=== PATIENT | male | born 1985 | race Caucasian/White ===

== ENCOUNTER 2021-09-19 10:18 | Day surgery (SDC) | payer MEDICARE, SELFPAY ==
[2021-09-19] VITALS (10 sets, daily range): BP systolic 127–144; BP diastolic 62–97; PULSE 64–89; RESP 14–18; TEMP 36.5–36.8; O2SAT 97–100; BMI 25.6
--- NOTE | ~2021-09-19 | CT_ITS ---
EXAMINATION: CT abdomen pelvis w con EXAM DATE: 09/19/2021 11:56 INDICATION: RLQ pain TECHNIQUE: Spiral CT of the abdomen and pelvis was performed following intravenous injection of 100 m L Omnipaque 350. Axial, coronal and sagittal images of the abdomen and pelvis were reviewed. The do se-length product (DLP) for this examination was 780.71 mGy-cm. The exposure was tailored according to patient size (auto mA exposure control), and iterative reconstruction (ASIR) was used as additiona l dose reduction technique. There is no prior study for comparison. FINDINGS: Appendix identified, mildly dilated and with mild adjacent inflammation, acute uncomplicate d appendicitis. The liver, spleen, adrenal glands and pancreas are unremarkable. Gallbladder is unr emarkable. No biliary obstruction. Portal and splenic veins are patent. Kidneys enhance symmetrica lly. There is no hydronephrosis. The prostate is unremarkable. The bladder is unremarkable. Ther e is no retroperitoneal or pelvic lymphadenopathy. Small umbilical fat-containing hernia. The stomach and small bowel are unremarkable. There is expected amount of colonic stool. No free i ntraperitoneal gas. The heart is normal in size. There are no pericardial or pleural effusions. T he lung bases are unremarkable. There are no osteoblastic or osteolytic lesions identified. IMPRESSION: Acute uncomplicated appendicitis. Reviewed, dictated and finalized at location A. [facility]
[2021-09-19] MEDS: SODIUM CHLORIDE 0.9% IV 1,000 ML 999 ML IV CONT (11:14)
[2021-09-19 11:25] LABS: Basophils Percent Auto 0.1 % (0.2-1.2); Eosinophils Absolute Auto 0.1 K/mm3 (0-0.3); Eosinophils Percent Auto 0.6 % (0-4.4); Hematocrit 45.6 % (42.0-52.0); Immature Granulocyte Absolute 0.06 K/mm3 (0.00-0.031); Immature Granulocyte Percent A 0.6 % (0-0.5); Lymphocytes Absolute Auto 2.17 K/mm3 (0.9-3.2); Lymphocytes Percent Auto 21.2 % (18.3-44.2); Mean Corpuscular HGB Conc 35.1 g/dl (32-36); Mean Corpuscular Hemoglobin 30.6 pg (26-34); Mean Corpuscular Volume 87.2 fl (80-100); Mean Platelet Volume 10.4 fl (7.4-10.4); Monocytes Absolute Auto 0.8 K/mm3 (0.1-0.6); Neutrophils Absolute Auto 7.1 K/mm3 (1.3-6.7); Neutrophils Percent Auto 69.5 % (45.5-73.1); Platelet Count Result 210 k/mm3 (150-375); Red Blood Count 5.23 M/mm3 (4.6-6.20); Red Cell Distribution Width 12.3 % (11.5-14.5); White Blood Count 10.2 K/mm3 (4.5-10.0)
[2021-09-19 11:29] LABS: Add Urine Microscopic? NO; Appearance Urine Clear (Clear); Bilirubin Urine Negative (Negative); Blood Urine Negative (Negative); Color Urine Colorless (Yellow); Glucose Urine UA Negative (Negative); Ketones Urine Negative (Negative); Leukocyte Esterase Ur Negative LEU/UL (Negative); Nitrate Urine Negative (Negative); Protein Urine Negative (Negative); Urobilinogen Urine Negative mg/dL (<2.0)
[2021-09-19 11:31] LABS: Specific Grav Ur 1.003 (1.001-1.035)
[2021-09-19 11:41] LABS: Alanine Aminotransferase 61 U/L (4-50); Albumin Level 4.9 g/dL (3.5-5.1); Alkaline Phosphatase 109 U/L (38-126); Anion Gap 11 mmol/L (8-16); Aspartate Amino Transferase 34 U/L (17-59); Bilirubin,Total 1.1 mg/dL (0.2-1.3); Blood Urea Nitrogen 11 mg/dL (9-20); Calcium 9.7 mg/dL (8.4-10.2); Carbon Dioxide 27 mmol/L (22-30); Chloride 102 mmol/L (98-107); Estimated CRCL calculation 80 ml/min; Estimated Glomerular Filt Rate > 60; Glucose 103 mg/dL (65-110); Lipase 74 U/L (23-300); Potassium 3.8 mmol/L (3.4-5.0); Sodium 140 mmol/L (137-145)
--- NOTE | 2021-09-19 11:43 | ED.GENADULT ---
HPI - General Adult General Chief complaint: Abdominal Pain Stated complaint: belly pain Time Seen by Provider: 09/19/21 10:46 Source: patient and RN notes reviewed Mode of arrival: ambulatory Limitations: no limitations History of Present Illness HPI narrative: Patient is a 36-year-old male who presents with right lower quadrant pain that began yesterday at roughly 5:00 in the evening after eating dinner he notes moderate ache pain to the right lower quadrant worse with activity movement palpation he notes associated nausea he denies similar occurrence in the past. Patient presents nondistressed does not take anything for his symptoms he notes he had a normal bowel movement this morning denies any urinary symptoms or any diarrhea melena or rectal bleeding pain radiates across the lower abdomen Related Data Allergies Allergy/AdvReac Type Severity Reaction Status Date / Time No Known Allergies Allergy Verified 09/19/21 11:15 Review of Systems Review of Systems: All systems reviewed & are unremarkable except as noted in HPI and below PMFSH Past Medical History Medical History (Updated 09/19/21 @ 12:47 by Armen Steele PA-C) Seizure Traumatic brain injury Social History Social History Smoking status: Never smoker Exam Narrative: GENERAL: Well-appearing, well-nourished, and in no acute distress. HEAD: Normocephalic, atraumatic. EYES: PERRLA and EOMI. ENT: Nares clear, no rhinorrhea or epistaxis. Mucous membranes moist. CHEST: Clear to auscultation. No respiratory distress. No wheezes rales or rhonchi HEART: Regular rate and rhythm. No murmur heard. Normal peripheral pulses. ABDOMEN: Soft, voluntary guarding and tenderness of the lower quadrants worse in the right lower quadrant per patient, nondistended EXTREMITIES: Normal range of motion. No edema. SKIN: Warm, dry, no rash. NEURO: No focal deficits. Alert and oriented x3. PSYCH: Normal mood and affect. Course Course Emergency Course: Patient aware of case findings treatment plan and diagnosis patient hydrated in the emergency department given medication for his pain he is resting comfortably he is aware of his diagnosis of acute appendicitis and will go to the OR Consultations Consultation #1: Discussed case with Dr. Finnegan surgeon who will take the patient to the OR would also like Zosyn to be administered Date: 09/19/21 Time: 13:00 Vital Signs Vital signs: Vital Signs Temperature 97.7 F 09/19/21 10:34 Pulse Rate 89 09/19/21 10:34 Respiratory Rate 18 09/19/21 10:34 Blood Pressure 137/97 H 09/19/21 10:34 Pulse Oximetry 100 09/19/21 10:34 Temperature 97.7 F 09/19/21 10:34 Pulse Rate 85 09/19/21 12:13 Respiratory Rate 16 09/19/21 12:13 Blood Pressure 129/84 09/19/21 12:13 Pulse Oximetry 98 09/19/21 12:13 Medical Decision Making MDM Narrative Medical decision making narrative: Patient presents with right lower quadrant pain diagnosed acute appendicitis uncomplicated we will go to the OR discussion was made with the surgeon Dr. Retana who would like the patient also be given Zosyn Vital Signs Vital Signs: Vital Signs Temperature 97.7 F 09/19/21 10:34 Pulse Rate 89 09/19/21 10:34 Respiratory Rate 18 09/19/21 10:34 Blood Pressure 137/97 H 09/19/21 10:34 Pulse Oximetry 100 09/19/21 10:34 Temperature 97.7 F 09/19/21 10:34 Pulse Rate 85 09/19/21 12:13 Respiratory Rate 16 09/19/21 12:13 Blood Pressure 129/84 09/19/21 12:13 Pulse Oximetry 98 09/19/21 12:13 Lab Data Result diagrams: 09/19/21 11:12 09/19/21 11:12 Labs: Lab Results 09/19/21 09/19/21 09/19/21 Range/Units 11:12 11:12 11:12 WBC 10.2 H (4.5-10.0) K/mm3 RBC 5.23 (4.6-6.20) M/mm3 Hgb 16.0 (14.0-18.0) g/dL Hct 45.6 (42.0-52.0) % MCV 87.2 (80-100) fl MCH 30.6 (26-34) pg MCHC 35.1 (32-36) g/dl RDW
--- NOTE | 2021-09-19 12:56 | WPDANESEPPF ---
Anes - Initial Pre Proc Eval Procedure: Operation Date: 09/19/21 14:00 Proposed Procedures p Laparoscopic Appendectomy - Roxi Finnegan MD Date/Time: 09/19/21 12:56 Pre Op Diagnosis: my leg hurmati Patient Data Age: 36 Gender: M Height: 1.78 m Weight: 81 kg Last Vital Signs Temp 36.5 C 09/19/21 10:34 Pulse 85 09/19/21 12:13 Resp 16 09/19/21 12:13 BP 129/84 09/19/21 12:13 Pulse Ox 98 09/19/21 12:13 Allergies Allergy/AdvReac Type Severity Reaction Status Date / Time No Known Allergies Allergy Verified 09/19/21 11:15 Laboratory Tests 09/19/21 09/19/21 09/19/21 11:12 11:12 11:12 WBC 10.2 K/mm3 H K/mm3 (4.5-10.0) RBC 5.23 M/mm3 M/mm3 (4.6-6.20) Hgb 16.0 g/dL g/dL (14.0-18.0) Hct 45.6 % % (42.0-52.0) MCV 87.2 fl fl (80-100) MCH 30.6 pg pg (26-34) MCHC 35.1 g/dl g/dl (32-36) RDW 12.3 % % (11.5-14.5) Plt Count 210 k/mm3 k/mm3 (150-375) MPV 10.4 fl fl (7.4-10.4) Immature Gran % (Auto) 0.6 % H % (0-0.5) Neut % (Auto) 69.5 % % (45.5-73.1) Lymph % (Auto) 21.2 % % (18.3-44.2) Union % (Auto) 8.0 % % (2.6-8.5) Eos % (Auto) 0.6 % % (0-4.4) Baso % (Auto) 0.1 % L % (0.2-1.2) Lymph # (Auto) 2.17 K/mm3 K/mm3 (0.9-3.2) Union # (Auto) 0.8 K/mm3 H K/mm3 (0.1-0.6) Eos # (Auto) 0.1 K/mm3 K/mm3 (0-0.3) Baso # (Auto) 0.0 K/mm3 K/mm3 (0.0-0.1) Abs Immat Gran (auto) 0.06 K/mm3 H K/mm3 (0.00-0.031) Absolute Neuts (auto) 7.1 K/mm3 H K/mm3 (1.3-6.7) Absolute Nucleated RBC 0.0 K/mm3 K/mm3 (0.0-0.012) Nucleated RBC % 0.0 % % (0.0-0.2) Sodium 140 mmol/L mmol/L (137-145) Potassium 3.8 mmol/L mmol/L (3.4-5.0) Chloride 102 mmol/L mmol/L (98-107) Carbon Dioxide 27 mmol/L mmol/L (22-30) Anion Gap 11 mmol/L mmol/L (8-16) BUN 11 mg/dL mg/dL (9-20) Creatinine 1.20 mg/dL mg/dL (0.7-1.3) Estim Creat Clear Calc 80 ml/min ml/min Estimated GFR > 60 (59 - ) Glucose 103 mg/dL mg/dL (65-110) Calcium 9.7 mg/dL mg/dL (8.4-10.2) Total Bilirubin 1.1 mg/dL mg/dL (0.2-1.3) AST 34 U/L U/L (17-59) ALT 61 U/L H U/L (4-50) Alkaline Phosphatase 109 U/L U/L (38-126) Total Protein 8.0 g/dL g/dL (6.3-8.2) Albumin 4.9 g/dL g/dL (3.5-5.1) Lipase 74 U/L U/L (23-300) Urine Color Colorless (Yellow) Urine Appearance Clear (Clear) Urine pH 7.0 (5.0-9.0) Ur Specific Reynolds 1.003 (1.001-1.035) Urine Protein Negative mg/dL mg/dL (Negative) Urine Glucose (UA) Negative mg/dL mg/dL (Negative) Urine Ketones Negative mg/dL mg/dL (Negative) Ur Blood (Man) Negative (Negative) Urine Nitrate Negative (Negative) Urine Bilirubin Negative (Negative) Urine Urobilinogen Negative mg/dL mg/dL (<2.0) Leukocyte Esterase Rfl Negative DEANNA/UL DEANNA/UL (Negative) Patient hx anesthesia problems: none Family hx anesthesia problems: none Results Review: All pre-operative results and documents have been reviewed as part of the pre-operative evaluation. [facility] Past Medical History Medical History (Updated 09/19/21 @ 12:47 by Armen Steele PA-C) Seizure Traumatic brain injury Social History Social History Smoking status: Never smoker Anes - Eval Final PreProcedure Day of Procedure 09/19/21 12:56 Patient weight: overweight Heart: regular rate and rhythm Lungs: clear to auscultation and normal air movement Airway: Mallampati scale class II Neurological: alert and oriente
[2021-09-19] MEDS: LACTATED RINGERS 1,000 ML 30 ML IV CONT ×2 (14:25→15:35)
--- NOTE | 2021-09-19 14:29 | PM.IMHP ---
H&P: HPI History of Present Illness Date/Time: 09/19/21 14:29 Pt is a 36 y/o M presenting to ED c/o constant RLQ abdominal pain since yesterday evening. Pt reports pain started around dinner time and has been progressively worsening. Pt reports pain is exacerbated by movement. Pt reports pain is localized in RLQ. Pt denies any associated symptoms although he has not had much of an appetite. Pt had normal BM this am. Pt denies previous episodes. Chief Complaint: acute appendicitis Review of Systems Constitutional: Constitutional: Reports as per HPI, Denies anorexia, Denies chills, Denies fatigue, Denies fever(s), Denies increased appetite, Denies lethargy, Denies malaise, Reports poor appetite, Denies weight gain and Denies weight loss Eyes: Eyes: Reports no additional eye complaints ENT: Reports system reviewed and no additional complaints, except as documented Cardiovascular: Cardiovascular: Reports no additional cardiovascular complaints Respiratory: Respiratory: Reports no additional respiratory complaints Gastrointestinal: Gastrointestinal: Reports as per HPI, Reports abdominal pain, Denies belching, Denies bloating, Denies change in bowel habits, Denies constipation, Denies GI cramping, Denies heartburn, Denies diarrhea, Denies loose stools, Denies nausea and Denies vomiting Genitourinary: Genitourinary: Reports no additional male genitourinary complaints Musculoskeletal: Musculoskeletal: Reports no additional musculoskeletal complaints Integumentary/Breasts: Skin/Breast: Reports system reviewed and no additional complaints, except as docu Neurologic: Reports system reviewed and no additional complaints, except as documented Psychiatric: Psychiatric: Reports no additional psychiatric complaints Endocrine: Endocrine: Reports no additional endocrine complaints Hematologic/Lymphatic: Hematologic/Lymphatic: Reports no additional hematologic/lymphatic complaints Allergic/Immunologic: Allergic/Immunologic: Reports no additional allergic/immunologic complaints PMFSH Past Medical History Medical History Seizure Traumatic brain injury Social History Social History Smoking status: Never smoker Comments surgical history - denies previous abd surgery FH - denies colorectal cancers, IBD Meds Home Medications and Allergies Allergies Allergy/AdvReac Type Severity Reaction Status Date / Time No Known Allergies Allergy Verified 09/19/21 11:15 Vital Signs Vital Signs - 24 hr 09/19/21 10:34 09/19/21 12:13 Temperature 36.5 C Pulse Rate 89 85 Respiratory Rate 18 16 Blood Pressure 137/97 H 129/84 Pulse Oximetry 100 98 Exam Const: General: cooperative, healthy appearing, comfortable, no acute distress, well developed, alert, awake and Physically active Nutritional Appearance: average body habitus Orientation/consciousness: patient oriented x3 Limitations: no limitations HENMT: Head: normal to inspection, normocephalic and atraumatic Ears: hearing grossly normal bilaterally General nose exam: Normal external nose present Face and sinus: normal facial exam Mouth: Yes Normal oral and palatal mucosa present Throat: posterior oropharynx normal Eyes: General: appearance normal, both eyes and all related structures Pupils: Equal, round and reactive pupils present EOM: EOMs intact bilaterally Neck: Neck: normal visual inspection, full ROM and no lymphadenopathy Chest: Chest palpation & inspection: normal inspection of the chest Resp: Effort & Inspection: normal respiratory effort Auscultation: clear to auscultation bilaterally Cardio: Rate: regular rate Rhythm: regular rhythm GI: Inspection: normal to inspection and non-distended GI Palp: Yes Soft to palpation, Yes Tenderness to palpation present (GI), Yes Guarding due to palpation present (GI), No Rigid due to palpation and No Hernia present
--- NOTE | 2021-09-19 14:34 | WPDHPUPDATE1 ---
History and Physical Update Update Date/Time: 09/19/21 14:34 History and Physical has been reviewed, including an updated exam of the patient. There are NO changes in the patient's condition. Risks, benefits, and alternatives have been discussed and questions answered. Patient agrees to proceed with procedure.
[2021-09-19] MEDS: BUPIVACAINE/EPINEPHRINE 0.5% 10 ML VIAL 30 ML INFILTRATE (15:02)
[2021-09-19] MEDS: KETOROLAC 30 MG/ML VIAL (*BKC) IV PUSH (15:21)
--- NOTE | 2021-09-19 15:21 | W.PM.PROC2 ---
Procedure Note - Detailed Date of Procedure 09/19/21 Pre-op Diagnosis acute appendicitis Post-op Diagnosis same Procedure Performed laparoscopic appendectomy Surgeon Roxi Finnegan MD Anesthesia general Indications 36 y/o M presenting to ED c acute appendicitis Findings acute uncomplicated appendicitis Description of Procedure The patient was taken to the operating room and placed in the supine position. After adequate induction of general anesthesia, the patient was prepped and draped in the normal sterile fashion. A time-out was then done to verify the patient's identity, as well as the procedure being performed. I began by making a 5 mm incision in the infraumbilical region, through this a Veress needle was placed in the peritoneal cavity. CO2 gas was then insufflated and after adequate pneumoperitoneum was achieved the Veress needle was removed. Then placed a 5 mm Optiview trocar under direct visualization into the peritoneal cavity. I then insufflated through this trocar site and the endoscope was placed into the trocar. Under direct visualization, placed 2 further 5 mm suprapubic port as well as an additional 12 mm port in the left lower abdomen. At this point identified the cecum, I retracted the cecum both medially and superiorly allowing me to expose the appendix. The appendix was noted to be dilated and inflamed. I was able to locate the base of the appendix with the cecum. I created a window with the [place] dissector between the appendix itself and the mesoappendix. I then transected the mesoappendix with a white vascular staple load. The Endo-BRYSON was then reloaded with a blue staple load and I transected the base of the appendix. Once the specimen was completely detached, an endo-pouch was placed into the 12 mm port site and the specimen was removed through the endo-pouch. The appendiceal specimen will be sent to pathology for further review. I then copiously irrigated the right lower quadrant. Hemostasis was noted at both staple lines no other pathology was seen in this area. I then moved the camera to the suprapubic port to check our its port of entry. No iatrogenic injury or other pathology was noted in the upper abdomen. I then closed the 12 mm port site with a Jasper code and 0 Vicryl suture under direct visualization. At this point, the abdomen was desufflated and all ports were removed. All port sites were closed with 4 Monocryl subcuticular suture. Dermabond was placed on all wounds. The patient tolerated the procedure well and was extubated in the operating room postop. He will be sent to the recovery room in stable condition. Estimated Blood Loss 10 Drains No Packing No Pathology yes Complications No immediate complications Condition stable Disposition PACU
== END 2021-09-19 17:35 | disposition home or self-care (01) ==
LOC: ANHED 12:53 → ANHSURGERY 13:00
PROVIDERS: Emergency Medicine Emergency Medical Services; Emergency Provider Emergency Medicine; Visit Provider Surgery
PROC: 0DTJ4ZZ Resection of Appendix, Percutaneous Endoscopic Approach (ICD-10-PCS; CPT 44970; principal; 2021-09-19 14:00)
DX: K35.30 Acute appendicitis with localized peritonitis, without perforation or gangrene (principal); Z87.820 Personal history of traumatic brain injury
CPT/HCPCS: 44970; 36415; 74177; 80053; 81003; 83690; 85025; 88304; 99285; A9270; J0330; J1885; J2250; J2270; J2405; J2543; J2704; J7030; J7120; Q9967

== ENCOUNTER 2023-02-24 14:38 | Emergency (ER) | payer MEDICARE, SELFPAY ==
[2023-02-24 14:44] VITALS: BP 127/95; PULSE 98; RESP 16; TEMP 36.3; O2SAT 100
--- NOTE | 2023-02-24 16:46 | ED.EYEPROB ---
HPI - Eye Problem General Chief complaint: Eye Problems Stated complaint: eye issues Time Seen by Provider: 02/24/23 15:33 History of Present Illness HPI Narrative: 37-year-old male present to the emergency department for evaluation of conjunctival injection with drainage. Patient reports symptoms started few days ago and involved his right eye. Patient did start Polymycin drops that were given to him by a friend and felt he had improvement of his right eye. Patient noticed that the left eye was worse this morning so he presented to the ED for evaluation. Patient does not wear glasses or contacts Related Data Home Medications Medication Instructions Recorded Confirmed levetiracetam 1,000 mg tablet 1,000 mg PO BID 09/19/21 01/03/23 levetiracetam 500 mg tablet 500 mg PO BID 09/19/21 01/03/23 zonisamide 100 mg capsule 100 mg PO BID 09/19/21 01/03/23 Allergies Allergy/AdvReac Type Severity Reaction Status Date / Time No Known Allergies Allergy Verified 12/26/22 07:22 Review of Systems Review of Systems: All systems reviewed & are unremarkable except as noted in HPI and below PMFSH Past Medical History Medical History Acute appendicitis BMI 27.0-27.9,adult Encounter for surgical aftercare following surgery on the digestive system Seizure Traumatic brain injury Surgical History Surgical History S/P laparoscopic appendectomy Social History Social History Smoking status: Never smoker Second hand tobacco smoke exposure: No Alcohol intake: never Substance use: never Living arrangements: with family Spiritual care concerns: No Exam Narrative: APPEARANCE: Well appearing, no pain, no distress, well-nourished. HEAD: normocephalic, atraumatic. EYES: Conjunctival injection with mucus drainage NOSE: Normal no drainage EARS:TMS clear with good light reflex. SKIN: Warm, dry. Normal Color Course Course Emergency Course: 37-year-old male presented the ED for evaluation of suspected conjunctivitis. Clinically patient does appear to have conjunctivitis. Patient had been started on Polymycin at home and appeared to have positive response. Patient was prescribed a new dose of Polymycin and patient was encouraged of close follow-up with ophthalmology. All question concerns were addressed and patient was well-appearing at time of discharge. Vital Signs Vital signs: Vital Signs Temperature 97.3 F L 02/24/23 14:44 Pulse Rate 98 02/24/23 14:44 Respiratory Rate 16 02/24/23 14:44 Blood Pressure 127/95 H 02/24/23 14:44 Pulse Oximetry 100 02/24/23 14:44 Oxygen Delivery Room Air 02/24/23 14:44 Temperature 97.3 F L 02/24/23 14:44 Pulse Rate 80 02/24/23 17:16 Respiratory Rate 18 02/24/23 17:16 Blood Pressure 127/88 02/24/23 17:16 Pulse Oximetry 99 02/24/23 17:16 Oxygen Delivery Room Air 02/24/23 14:44 Discharge Plan Discharge Clinical Impression: Conjunctivitis Patient Disposition: Home, Self-Care Condition: Stable Instructions: Antibiotic Form, Conjunctivitis (ED) Additional Instructions: Antibiotic drops as directed. Have close follow-up with ophthalmology. If you have any worsening symptoms then please call or return to the emerged department. Prescriptions: New polymyxin B sulf-trimethoprim [Polytrim] 10,000 unit- 1 mg/mL drops 1 drp EACH EYE QID 5 Days Qty: 10 0RF No Action fluticasone propionate [Flonase Allergy Relief] 50 mcg/actuation spray,suspension 1 spray intranasal BID Qty: 16 0RF Rx Instructions: administer into each nostril levetiracetam 500 mg tablet 500 mg PO BID zonisamide 100 mg capsule 100 mg PO BID levetiracetam 1,000 mg tablet 1,000 mg PO BID Follow-up/Referrals: [facility] [Outside] Sahil Roach
[2023-02-24] MEDS: POLYMYXIN/TRIMETHOPRIM OPHTH 10 ML DROPS 1 DROP EACH EYE (17:13)
[2023-02-24 17:16] VITALS: BP 127/88; PULSE 80; RESP 18; O2SAT 99
== END 2023-02-24 17:18 | disposition home or self-care (01) ==
PROVIDERS: Emergency Provider Emergency Medicine; PCP Family Medicine
DX: H10.9 Unspecified conjunctivitis (principal); Z87.820 Personal history of traumatic brain injury
CPT/HCPCS: 99283; A9270

== ENCOUNTER 2023-09-15 09:22 | Outpatient (RCR) | payer MEDICARE, SELFPAY ==
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
--- NOTE | 2023-09-15 10:03 | OPREHPOC ---
Outpatient Therapy Plan of Care This is a Multidisciplinary Plan of Care that may contain components documented by all disciplines (PT, OT, and ST.) PT Problem 1 PT Problem #1 Knowledge Deficit PT Goal 1 Goal Pt. will be independent with performance of the home Sheldon Maneuver. Target Visit 3 PT Problem 2 PT Problem #2 Impaired Vestibular Syste PT Goal 1 Goal Pt. will reports less than 5% limitation on the DHI indicating improved function. Target Visit 3
--- NOTE | 2023-09-18 13:15 | PCPTNOTE ---
09/18/23: Pt called and canceled today stating he needs to reschedule for next week. -Starla Ojeda, PT
--- NOTE | 2023-09-25 09:12 | OPREHPOC ---
Outpatient Therapy Plan of Care This is a Multidisciplinary Plan of Care that may contain components documented by all disciplines (PT, OT, and ST.) PT Problem 1 PT Problem #1 Knowledge Deficit PT Goal 1 Goal Pt. will be independent with performance of the home Sheldon Maneuver. Target Visit 3 Progress Met PT Problem 2 PT Problem #2 Impaired Vestibular Syste PT Goal 1 Goal Pt. will reports less than 5% limitation on the DHI indicating improved function. Target Visit 3 Progress Not Met
--- NOTE | 2023-09-25 09:13 | PTOPREEVAL ---
Assessment and note entered by JT File, PT Evaluation Information Assessment Status Re-evaluation Diagnosis BPPV Onset 09/01/23 Subjective Information patient reports he continues to have symptoms on and off. he reports it is mostly when laying down. he reports even when he does not have the spins of the room he can feel a pressure behind the L ear. he reports he is going to see his surgeon who did his head surgery next week to ask about the chronic vertigo issues. he reports he is compliant with home boyd. Reported Pain Level Pain Score 0: Self Report Assessment PT Clinical Summary mr. Nicolas presents to skilled PT for his 3rd skilled therapy visit for vertigo. he presents with positive symptoms to the L side with zeenat hallpike today. although his symptoms have continued, therapy will hold on continuing treatment at this time to follow up with surgeon/ MD. he was educated in antoinehoaltaf collins exercises today to progress his rehab into the habituation phase. Plan of Care Interventions Patient/Caregiver Educati,Therapeutic Activities, Therapeutic Exercise Other Interventions canalith repositioning PT Services Indicated Yes Treatment Frequency and hold therapy to follow up with surgeon from Duration accident. continue with home boyd and new CC exercises at home. These treatments will address the objective and functional deficits as defined above. The patient will be advanced safely and appropriately in order for the patient to progress towards his/her prior level of function. Additional exercises will be introduced and as well as a comprehensive home exercise program upon discharge, if needed, ?to ensure carryover of functional gains achieved in the clinic. This treatment plan has been reviewed and agreement upon by the patient.
== END 2023-09-25 23:59 | disposition home or self-care (01) ==
LOC: CHSPT 09:22
PROVIDERS: PCP Family Medicine; Visit Provider Family Medicine
DX: H81.12 Benign paroxysmal vertigo, left ear (principal)
CPT/HCPCS: 95992; 97110; 97161

== ENCOUNTER 2023-12-30 13:13 | Outpatient (CLI) | payer MEDICARE, SELFPAY ==
--- NOTE | ~2023-12-30 | XR_ITS ---
XR finger 3rd LT min 2V 12/30/2023 13:27 Indication: Left third finger pain. Possible foreign body. Procedure: 3 views left third finger Comparison: No prior studies for comparison. Findings: There is anatomic alignment. No fracture, subluxation or dislocation. No focal soft tissue abnormality. No foreign bodies are identified. Impression: 1: No significant bone or joint abnormality. Reviewed, dictated and finalized at location B. Impression: 1: No significant bone or joint abnormality.
== END 2023-12-30 13:14 | disposition home or self-care (01) ==
LOC: CHSIMG 13:16
PROVIDERS: PCP Family Medicine; Visit Provider Family Medicine
DX: S60.459A Superficial foreign body of unspecified finger, initial encounter (principal)
CPT/HCPCS: 73140

== ENCOUNTER 2025-02-02 09:53 | Outpatient (CLI) | payer MEDICARE, SELFPAY ==
--- OUTSIDE RECORDS SUMMARY | 2025-02-02 09:56 | XMS_ITS | Data Portability ---
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 His aphasia has improved but he may not be ready to work full-time, especially in the field that would require complete concentration. No new antimicrobial therapy. Time spent with patient: 45 minutes, greater than half of which was in counseling. See Dr. Fierro regarding blood pressure. Return in 1 year. 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 He has had a good year with no major difficulties. He had asked previously to wean from his anticonvulsants. He said he especially dislikes the 1 beginning with Z. Thus we gradually weaned him off zonisamide and he has done well. Level was less than 2 on 12/10/23 when the Keppra level was 29. At that time he took Keppra 1500 mg p.o. twice daily. I reduced the dose to 1 g p.o. twice daily. He said that he did not do well. He cannot be specific but said I went to sleep. He returned to the 1500 mg dose and feels well. 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 He is helping his 3 children with school and has had no fevers, seizures, headaches. He does note some swelling or stuffiness in his left ear. He must perform a Valsalva maneuver for relief. He had previously seen Leonel Kebede MD who has now moved to [place]. He would like to see another agricultural engineering technician. He feels best when he works regularly. He notes that he still does not drink enough water. Today he came alone. In 2021 he was accompanied by his mother whom I had met several years ago. She retired that year but planned to return to work because half-way is boring. The patient has more energy this year. He helped his 67-year-old father with a home construction project in May 2021 and found that he was very fatigued whereas his father had great energy. His young children had colds and ear infections in early May 2021 but feel well now. Shortly afterward he had a prolonged cough which resolved in June 2021. However he had another long cold in early December 2021 and had another one when I saw him 06/10/22. His mother wondered whether he has allergies although he has no symptoms now. He is currently helping build upon. He drives a car by himself. He Sleeping is better this year but he still has difficulty shutting off his brain. He had an irritation in his left ear in early 2021 and wondered on 06/10/22 if he had if he has a cancer there. Exam was normal then and he still has discomfort in the left ear. 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 For many months he was treated for an MRSA infection of the skull flap that has had no drainage in recent years. It itches occasionally. However he has noted thinning of the hair in 2022. His sister continues to cut his hair. They both noted a few scabs on the scalp in 2020 but not in 2022 or 2023. He. Review of systems: He had left chest pain but a normal chest x-ray and EKG and negative study for D-dimers on 05/25/21. Echocardiogram 06/13/21 showed a left ventricular ejection fraction of 50 to 55%, normal left atrial pressure with grade 1 diastolic dysfunction, borderline global hypokinesis of left ventricle, right ventricular systolic pressure less than 20 mmHg. He he continues to decline the Covid vaccine. His neurologist is Evon Hutchinson. His epilepsy specialist is Melo Gilliam whom he saw about November 2017 and apparently in November 2019. On 06/06/21 he told me that he wished to discuss vaccines with them. However he has not seen them since about November 2019. On 06/10/22 he said that he is not interested in the COVID-vaccine. He reiterated the refusal on 06/11/23 and 07-01. He has had no jesse seizures for several years. He has not seen neurosurgery since 06/09/15 but passed his regards to Dr. Kaur. He drives a car and came alone today. He occasionally feels that an absence spell may be coming. He combats it by relaxing. In 2021 he intended to return to his neurologist in [place] but now says he does not think he needs them. He takes levetiracetam but thinks that it makes him sleepy and interferes with his thinking. He omits a dose several times per month and feels better when he does. He cannot recall whether he had been skipping doses in 2021 when his levetiracetam level was 39.7 (at the upper limit of the therapeutic range) and the zonisamide level was 7.3 (slightly subtherapeutic). In June 2023 he took a little longer but says it is a pain. Keppra 1500 mg twice a day and zonisamide 100 mg twice a day. Keppra level was borderline elevated in 2018. Sinus infections have not recurred since treatment with Augmentin September [id number]. 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 A left lower lobe pulmonary embolus 10/23/13 was treated with anticoagulation through 04/12/14. He no longer attends weekly speech therapy for reading and writing at [facility] with Joyce Thompson for 1 hour each nor does he visit the [facility] in [place] for speech therapy. He is sorry that the [employer] lost the playoffs in 2021 did not make the playoffs in 2022. He weighed 178 pounds in 2013, 165 pounds in 2015, 178 pounds 05/26/17, 174 pounds 05/27/18, 188 on 06/06/21, 190 on 06/10/22, 185 on 06/11/23. He says that he is still losing both visual acuity and color perception in the left eye but that nothing can be done. It is what it is. He has had long-standing eustachian tube dysfunction and notable but stable left tympanic membrane retraction. With a lack of any middle ear fluid and no ossicular erosion, Dr. Kebede 07/05/16 recommended frequent Valsalva maneuvers at home and long-term fluticasone, with office follow-up when necessary. Tai does perform that maneuver now but says it is a pain.. He has no fevers, chills, headaches, nausea, vomiting, diarrhea, dysuria or hematuria. He can sense that food is in his environment but he cannot distinguish the aromas. Acne cleared with topical clindamycin in 2013. He received Adacel in September 2017. Patient saw an center machine operator at the [facility] in [place] for 15-20 minutes then because of difficulty with his left eye vision. He said that he did not learn anything and no treatment was given. He says he is done with care with his center machine operator at the [facility] and has not seen any eye doctor since about 2019. He says he hears well and can understand except when people speak too fast. He has difficulty processing the written word. In 2018 he had some abdominal pain with urinary frequency but apparently had no sign of infection. He was advised to drink blackberry wine which helped. He saw CHAYO Sampson of the urology department 06/16/19 because of a history of urinary frequency; no abnormalities were found but at that time he had no complaints. He still has frequency but attributes it to his consumption of liquids which includes 8 bottles of water and 1 pot of coffee daily. He still has occasional pain in the neck. Social history: He does not smoke or drink except for a rare bottle of beer. His Work Compensation case settled in September 2020; he said that the trial, if he wished to pursue it, would not take place until at least 2022. 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 He has help with many home reconstruction projects. His Yahir, a [place] woman that he met in [place] and 04/26/17 stayed home with the children. She traveled around [place] as an mobile security specialist but prefers a job closer to [place]. Meanwhile she is a full-time mother. Daughter Nanette attends first grade. His sister in [facility] in July 2018. Family history: Father age 69 is well. Mother, Enedina, age 68 is well and retired as a school custodian. His sister born in 1984 has 3 healthy children. Brother born in 1979 is well. A cousin in 2021 at age 48 of alcoholic cirrhosis. He has 3 healthy children: Nanette aFrias, born in September 2017; Adriana Chao, born 01/12/19; and a son, Davis, born 06/11/21. EXAM: Well-developed, well-nourished, muscular white man in no acute distress. Weight 190 pounds. Blood pressure 166/98. Head: Normocephalic, nontender, with a dry well-healed left paramedian incision. An anterior 10 x 10 mm nodule, which may represent a projecting screw, is palpable. No scab. Hair is black but less thick than it had been on 06/05/20. It is especially thin over the incision which has healed well. Eyes: Pupils equal, round, react to light and accommodation. He could identify the basic colors well. Ears: Normal on the right with reduced left hearing and retracted left drum. Nose: Normal. Mouth: Normal. Pharynx: Benign. Neck is supple without adenopathy. Thyroid: Not enlarged. Chest: Clear. Heart: S1 normal, S2 normal. No murmurs or gallops. Abdomen: Soft, nontender. Liver and spleen not enlarged. Rectal exam 06/02/19: Normal sphincter tone. Round stool in the vault. Prostate is about 30 g and smooth with no nodules. No rectal masses. Today he had no lesions seen on perirectal inspection. Extremities: No clubbing, cyanosis, or edema. Skin: No rash. Mental status: Alert, oriented, and cooperative. Speech is clear with fewer interruptions for word searching than in the past. He continues to gain fluency and hesitates very little. Today he could provide names of physicians. Following directions is good. He could read very short words. He walked on his tiptoes and then walked on his heels in accordance with directions. Gait and station were normal. Adult pHQ 2 & 9 score was 0 on 05/27/18. He says he always needs help with medical instructions. However he drove 1 hour to the office by himself today. cc: Sahil Fierro, DO Resultspatient [id number] seen (54 on 06/11/2023) (ZONGRAN): 7.3 ug/mL Abnormal Low Reference Range 10.0-40.0LEVETIRACETA M(KEPPRA): 39.7 ug/mL Reference Range [id number] TIRACETAM(KEPPRA): 34.6 ug/mL Reference Range [id number] ETIRACETAM(KEPPRA): 48.8 mcg/mL Abnormal High Jarek Dickinson MD [address] [facility], [place], [address], [place] [facility] 06/09/2024 10:40:56
--- OUTSIDE RECORDS SUMMARY | 2025-02-02 09:56 | XMS_ITS | Continuity of Care Document ---
Author Organization [facility], [facility] Address [address] [place] [phone] Phone Care Team Providers Care Drilling Field Specialist Name Role Phone Unavailable Unavailable Unavailable Allergies, Adverse Reactions, Alerts Substance Reaction Status Criticality No Known allergies Procedures Procedure Date EYE EXAM, NEW PATIENT MEDICAL Advance Directives Directive Yes / No Effective Date File Name No Information Encounters Encounter Description Practice Location Reason(s) For Visit Diagnoses Date Provider Providers Copied on Encounter [facility], [facility], [address] [place] [address], [id number], tel:[phone] [facility] Hereditary retinal dystrophy, unspecified No Information Family History Family Member Type Diagnosis Age At Onset Problem (finding) Family history of HBP Problem (finding) Family history of Diabe caro mellitus Payers Payer name Insurance type Covered constitution party ID Authoriza tion(s) [facility] [id number] Social History Type Description Quantity Date Captured Comments Alcohol Use Details occasional w ine/beer occasionally Caffeine Use Details Unknown Tobacco Use Status No Information Smoking Status No Information Non-Smoking Tobacco Use Details : No Details Available : No Details Available Sex Male Chief Complaint And Reason For Visit No Information Reason For Referral Reason For Referral No Information History Of Present Illness Encounter Date Complaint History Of Prese nt Illness No Information Functional Status Date Functional Assessmen t No Information Instructions Date Instruction Additional Infor hitesh - per Dr. Peña Related to Cone Dystrophy Cone Dystrophy OU Co ndition: new problem addtl w/u needed. 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 This is why pt. has difficulty seeing when bright light is shined and also difficulty defining colors. Pt. needs to see a specialist in [place] (Dr. Peña at [facility]) for further work-up. Related to Cone Dystrophy Assessments Type Assessment Date No Information Patient Care Teams Name Effective Dates (start - stop) Status Members No Information
--- NOTE | 2025-02-02 11:00 | NEURO_ITS ---
Impression: # Complains of numbness/pain of left hand. History of head and neck trauma. ? # Mild left Carpal Tunnel Syndrome. ? # No ulnar neuropathy. ? # Needle/EMG exam mildly abnormal in left tricep; could be related to old neck injury. ?Nerve Conduction Studies Anti Sensory Summary Table ?Stim Site NR Peak (ms) P-T Amp (?V) Site1 Site2 Delta-P (ms) Dist (cm) Tomas (m/s) Left Median Anti Sensory (2-3nd Digit) Wrist ? 3.3 51.2 Wrist 2-3nd Digit 3.3 14.0 42 Wrist ? 3.3 50.6 Wrist 2-3nd Digit 3.3 14.0 42 Left Radial Anti Sensory (Base 1st Digit) Wrist ? 1.9 33.7 Wrist Base 1st Digit 1.9 0.0 Left Ulnar Anti Sensory (5th Digit) Wrist ? 2.5 57.7 Wrist 5th Digit 2.5 14.0 56 Motor Summary Table ?Stim Site NR Onset (ms) O-P Amp (mV) Site1 Site2 Delta-0 (ms) Dist (cm) Tomas (m/s) Left Median Motor (Abd Poll Brev) Wrist ? 4.1 3.0 Elbow Wrist 4.9 31.0 63 Elbow ? 9.0 2.5 Left Ulnar Motor (Abd Dig Minimi) Wrist ? 2.2 7.9 A Elbow Wrist 4.8 30.0 63 A Elbow ? 7.0 6.7 B Elbow Wrist 3.5 22.0 63 B Elbow ? 5.7 6.2 F Wave Studies ?NR F-Lat (ms) L-R F-Lat (ms) Left Median (Mrkrs) (Abd Poll Brev) ? 27.72 Left Ulnar (Mrkrs) (Abd Dig Min) ? 27.86 EMG ?Side Muscle Nerve Root Ins Act Fibs Amp Dur Recrt Comment Left 1stDorInt Ulnar C8-T1 Nml Nml Nml Nml Nml Left Ext Indicis Radial (Post Int) C7-8 Nml Nml Nml Nml Nml Left Ext Digitorum Radial (Post Int) C7-8 Nml Nml Nml Nml Nml Left BrachioRad Radial C5-6 Nml Nml Nml Nml Nml Left PronatorTeres Median C6-7 Nml Nml Nml Nml Nml Left Abd Poll Brev Median C8-T1 Nml Nml Nml Nml Nml Left ABD Dig Min Ulnar C8-T1 Nml Nml Nml Nml Nml Left FlexPolLong Median (Ant Int) C7-8 Nml Nml Nml Nml Nml Left Abd Poll Long Radial (Post Int) C7-8 Nml Nml Nml Nml Nml Left Biceps Musculocut C5-6 Nml Nml Nml Nml Nml Left Triceps Radial C6-7-8 Nml Nml Incr >12ms +1 Left Deltoid Axillary C5-6 Nml Nml Nml Nml Nml
== END 2025-02-02 09:54 | disposition home or self-care (01) ==
PROVIDERS: PCP Family Medicine; Visit Provider Family Medicine
DX: G56.02 Carpal tunnel syndrome, left upper limb (principal)
CPT/HCPCS: 95886; 95909

== ENCOUNTER 2025-02-24 13:02 | Outpatient (CLI) | payer MEDICARE, SELFPAY ==
--- NOTE | ~2025-02-24 | MR_ITS ---
MRI of the cervical spine Clinical History: Radiculopathy Technique: Axial T2-weighted and gradient images, and sagittal T1-weighted, T2-weighted, and STIR samm ges were acquired. Findings: There is no fracture or subluxation of the cervical spine. Vertebral bodies maintain normal height and alignment. No bone marrow signal abnormality seen. At C2-C3, there is no disc bulge or herniation. No spinal canal stenosis or neural foraminal narrowin g. At C3-C4, there is mild disc osteophyte complex. Probable mild right neural foraminal narrowing. Left neural foramen intact. No spinal canal stenosis or cord compression. At C4-C5, there is minimal disc bulge and minimal facet arthropathy. Possible mild right neural latoya inal narrowing. Left neural foramen preserved. No canal stenosis or cord compression. At C5-C6, there is mild disc osteophyte complex. No jesse canal stenosis or cord compression. Neural foramina are intact. At C6-C7, there is disc osteophyte complex, most prominent at the left para central to left foraminal region with left neural foraminal narrowing. Right neural foramen preserved. No canal stenosis or co rd compression. No abnormal signal seen in the spinal cord. Paravertebral soft tissues are unremarkable. Impression: Left neural foraminal narrowing at C6-C7 related to left paracentral/foraminal disc osteophyte comple x. Additional minimal degenerative changes, as above. Reviewed, dictated and finalized at [facility]. Impression: Left neural foraminal narrowing at C6-C7 related to left paracentral/foraminal disc osteophyte complex. Additional minimal degenerative changes, as above.
--- OUTSIDE RECORDS SUMMARY | 2025-02-24 13:20 | XMS_ITS | Continuity of Care Document ---
Author Organization [facility], [facility] Address [address] [place] [phone] Phone Care Team Providers Care Broadcast News Producer Name Role Phone Unavailable Unavailable Unavailable Allergies, Adverse Reactions, Alerts Substance Reaction Status Criticality No Known allergies Procedures Procedure Date EYE EXAM, NEW PATIENT MEDICAL Advance Directives Directive Yes / No Effective Date File Name No Information Encounters Encounter Description Practice Location Reason(s) For Visit Diagnoses Date Provider Providers Copied on Encounter [facility], [facility], [address] [place] [address], [id number], tel:[phone] [facility] Hereditary retinal dystrophy, unspecified No Information Family History Family Member Type Diagnosis Age At Onset Problem (finding) Family history of Diabe caro mellitus Problem (finding) Family history of HBP Payers Payer name Insurance type Covered democrat ID Authoriza tion(s) [facility] [id number] Social History Type Description Quantity Date Captured [...] Pt. needs to see a specialist in [place] (Dr. Peña at [facility]) for further work-up. Related to Cone Dystrophy Assessments Type Assessment Date No Information Patient Care Teams Name Effective Dates (start - stop) Status Members No Information
--- OUTSIDE RECORDS SUMMARY | 2025-02-24 13:20 | XMS_ITS | Encounter Summary ---
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
--- OUTSIDE RECORDS SUMMARY | 2025-02-24 13:20 | XMS_ITS | Clinical Summary ---
Author Organization [facility] Address [address] [place] [address] Care Team Providers Care Mixing Place Supervisor Name Role Phone Samuel Chang MD Primary Care Provider [phone] Enedina Panchal PA-C Unavailable [phone] Allergies No known active allergies Medications levETIRAcetam 1000 MG tablet Take 1,500 mg by mouth 2 (two) times daily. Active zonisamide 100 MG capsule Take 100 mg by mouth daily. 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 Gender Identity Not on file Sexual Orientation Not on file Last Filed Vital Signs Vital Sign Reading Time Taken Comments Blood Pressure 121/78 03/02/2022 11:45 AM CDT Pulse 80 03/02/2022 11:44 AM CDT Temperature 36.6 C (97.8 F) 03/02/2022 11:44 AM CDT Respiratory Rate 18 03/02/2022 11:44 AM CDT Oxygen Saturation 99% 03/02/2022 11:45 AM CDT Inhaled Oxygen Concentration - - Weight 81.6 kg (180 lb) 03/02/2022 11:44 AM CDT Height 177.8 cm (5' 10) 03/02/2022 11:44 AM CDT Body Mass Index 25.83 03/02/2022 11:44 AM CDT Plan of Treatment Health Maintenance Due Date Last Done Comments Annual Physical 1990 Hepatitis C 2005 DTaP, Tdap and Td Vaccines (1 - Tdap) 2006 04/11/1992, 10/31/1988, 1987, Additional history exists Hepatitis B Vaccines (1 of 3 - 19+ 3-dose series) 2006 COVID-19 Vaccine (2023-25 season) 2024 HPV Vaccines Aged Out No longer eligi ble based on patient's age to complete this topic Meningococcal B Vaccine Aged Out No l onger eligible based on patient's age to complete this topic Meningococcal Vaccine Aged Out No michael jackelyn eligible based on patient's age to complete this topic Pneumococcal Vaccine: Pediatrics (0 to 5 Years) and At-Risk Patients (6 to 49 Years) Aged Out No longer eligible based on patient's age to complete this topic RSV Immunizations Under 20 Months Aged Out No longer eligible based on patient's age to complete this topic Insurance [facility] Care Teams Mixing Place Supervisor Relationship Specialty Start Date End Date [place] [id number] PCP - General FAMILY PRACTICE 04/20/19 Enedina [place] [address] Physician Nursing Technician PHYSICIAN SKY CAP 04/20/19
--- OUTSIDE RECORDS SUMMARY | 2025-02-24 13:20 | XMS_ITS | Data Portability ---
Author Organization [facility], [facility]) Address [address] 4th [place] [address] Care Team Providers Care Waxer Operator Name Role Phone SAHIL FIERRO Primary Care [...] sloping to profound sensorineural hearing loss. Speech Endodontics Dentist Thresholds were 5 DB in the right [...] deformed TM audio 01/25 100/100 continue KHAN [email or web address] Not available 07/13/2024 14:53:15 Plan of Treatment [...] 2023 [facility], [address] [place] [address], [id number], 06/09/2024 13:31:22 CBC w/ auto diff 2023 [facility], [address] [place] [address], [id number], 06/09/2024 13:09:55 urinalysi s complete, reflex culture 2023 [place] [facility], [address] [place] [address], [id number], 06/09/2024 12:03:26 levetirac etam, serum 2023 [facility], [address] [place] [address], [id number], 06/12/2024 07:41:20 methicill in resistant staphyloc occus aureus, culture, unspecifi ed specimen 2023 [place] [facility], [address] [place] [address], [id number], 06/10/2024 16:53:19 Referral None recorded. Procedures None recorded. Surgeries None recorded. Imaging None recorded. Medication Orders None recorded. Patient TargetsNo targets recorded. Patient Instructions Encounter Date Encounter Id Patient Instructions Last Modified By Organization Details Last Modified Time 07/13/2024 [id number] hearing evaluation* [email or web address] Not available 07/13/2024 15:56:14 [...] BE CLINI ROMELIA LEXIE Hua Not Available [facility] [address] [place] [address], [id number], 06/09/2024 12:03:26 06/09/20 24 06/09/2024 urina lysis compl ete, refle x cultu re color YELLOW Not Available [facility] [address] [place] [address], [id number], 06/09/2024 12:03:26 06/09/2006/09/2024 urina lysis compl ete, refle x cultu re clarity CLEAR Not Available [facility] [address] [place] [address], [id number], 06/09/2024 12:03:26 06/09/20 24 06/09/2024 urina lysis compl ete, refle x cultu re pH 6.0 5.0-7. 5 Not Available [facility] [address] [place] [address], [id number], 06/09/2024 12:03:26 06/09/20 24 06/09/2024 urina lysis compl ete, refle x cultu re specific gravity 1.011 1.000- 1.030 Not Available [facility] [address] [place] [address], [id number], 06/09/2024 12:03:26 06/09/20 24 06/09/2024 urina lysis compl ete, refle x cultu re blood NEGATI VE negati ve Not Available [facility] [address] [place] [address], [id number], 06/09/2024 12:03:26 06/09/20 24 06/09/2024 urina lysis compl ete, refle x cultu re bilirubin NEGATI VE negati ve Not Available [facility] [address] [place] [address], [id number], 06/09/2024 12:03:26 06/09/2006/09/2024 urina lysis compl ete, refle x cultu re urobilinogen 0.2 0.2-1. 0 Not Available [facility] [address] [place] [address], [id number], 06/09/2024 12:03:26 06/09/2006/09/2024 urina lysis compl ete, refle x cultu re ketone NEGATI VE negati ve Not Available [facility] [address] [place] [address], [id number], 06/09/2024 12:03:26 06/09/2006/09/2024 urina lysis compl ete, refle x cultu re glucose NEGATI VE negati ve Not Available [facility] [address] [place] [address], [id number], 06/09/2024 12:03:26 06/09/20 24 06/09/2024 urina lysis compl ete, refle x cultu re protein NEGATI VE negati ve Not Available [facility] [address] [place] [address], [id number], 06/09/2024 12:03:26 06/09/20 24 06/09/2024 urina lysis compl ete, refle x cultu re nitrite NEGATI VE negati ve Not Available [facility] [address] [place] [address], [id number], 06/09/2024 12:03:26 06/09/2006/09/2024 urina lysis compl ete, refle x cultu re leukocytes NEGATI VE negati ve Not Available [facility] [address] [place] [address], [id number], 06/09/2024 12:03:26 06/09/20 24 06/09/2024 urina lysis compl ete, refle x cultu re RBC 0-2 0-2/hp f Not Available [facility] [address] [place] [address], [id number], 06/09/2024 12:03:26 06/09/20 24 06/09/2024 urina lysis compl ete, refle x cultu re WBC 0-5 0-5/hp f Not Available [facility] [address] [place] [address], [id number], 06/09/2024 12:03:26 06/09/20 24 06/09/2024 urina lysis compl ete, refle x cultu re squamous epithelial 0-2 0-10/h pf Not Available [facility] [address] [place] [address], [id number], 06/09/2024 12:03:26 06/09/20 24 06/09/2024 urina lysis compl ete, refle x cultu re bacteria NONE SEEN none Not Available [facility] [address] [place] [address], [id number], 06/09/2024 12:03:26 06/09/20 24 06/09/2024 urina lysis compl ete, refle x cultu re hyaline cast 0-2 0-2/lp f Not Available [facility] [address] [place] [address], [id number], 06/09/2024 12:03:26 06/09/20 24 06/09/2024 CBC w/ auto diff CBC with differential Not Available [facility] [address] [place] [address], [id number], 06/09/2024 13:09:55 06/09/2006/09/2024 CBC w/ auto diff WBC 5.5 K/uL 4.8- 10.8 Not Available [facility] [address] [place] [address], [id number], 06/09/2024 13:09:55 06/09/2006/09/2024 CBC w/ auto diff RBC 5.69 M/uL 4.70-6 .10 Not Available [facility] [address] [place] [address], [id number], 06/09/2024 13:09:55 06/09/2006/09/2024 CBC w/ auto diff HGB 16.7 g/dL 14.0-1 8.0 Not Available [facility] [address] [place] [address], [id number], 06/09/2024 13:09:55 06/09/2006/09/2024 CBC w/ auto diff HCT 48.3 % 42.0-5 2.0 Not Available [facility] [address] [place] [address], [id number], 06/09/2024 13:09:55 06/09/2006/09/2024 CBC w/ auto diff MCV 84.9 fL 80.0-9 4.0 Not Available [facility] [address] [place] [address], [id number], 06/09/2024 13:09:55 06/09/2006/09/2024 CBC w/ auto diff MCH 29.3 pg 27.0- 31.0 Not Available [facility] [address] [place] [address], [id number], 06/09/2024 13:09:55 06/09/2006/09/2024 CBC w/ auto diff MCHC 34.6 g/dL 32.0-3 6.0 Not Available [facility] [address] [place] [address], [id number], 06/09/2024 13:09:55 06/09/2006/09/2024 CBC w/ auto diff RDW-SD 37.8 fL 35.1 - 46.3 Not Available [facility] [address] [place] [address], [id number], 06/09/2024 13:09:55 06/09/20 24 06/09/2024 CBC w/ auto diff plt 231 K/uL 130-40 0 Not Available [facility] [address] [place] [address], [id number], 06/09/2024 13:09:55 06/09/20 24 06/09/2024 CBC w/ auto diff MPV 10.7 fL 7.5- 11.8 Not Available [facility] [address] [place] [address], [id number], 06/09/2024 13:09:55 06/09/20 24 06/09/2024 CBC w/ auto diff tammi% 56.8 % not estab Not Available [facility] [address] [place] [address], [id number], 06/09/2024 13:09:55 06/09/20 24 06/09/2024 CBC w/ auto diff lym% 34.3 % not estab Not Available [facility] [address] [place] [address], [id number], 06/09/2024 13:09:55 06/09/20 24 06/09/2024 CBC w/ auto diff mono% 7.4 % not estab Not Available [facility] [address] [place] [address], [id number], 06/09/2024 13:09:55 06/09/20 24 06/09/2024 CBC w/ auto diff eos% 0.9 % not estab Not Available [facility] [address] [place] [address], [id number], 06/09/2024 13:09:55 06/09/2006/09/2024 CBC w/ auto diff baso% 0.2 % not estab Not Available [facility] [address] [place] [address], [id number], 06/09/2024 13:09:55 06/09/20 24 06/09/2024 CBC w/ auto diff abs tammi 3.1 K/uL 1.5-7. 5 Not Available [facility] [address] [place] [address], [id number], 06/09/2024 13:09:55 06/09/20 24 06/09/2024 CBC w/ auto diff abs lym 1.9 K/uL 1.2-3. 4 Not Available [facility] [address] [place] [address], [id number], 06/09/2024 13:09:55 06/09/2006/09/2024 CBC w/ auto diff abs mono 0.4 K/uL 0.1-1. 0 Not Available [facility] [address] [place] [address], [id number], 06/09/2024 13:09:55 06/09/2006/09/2024 CBC w/ auto diff abs eos 0.1 K/uL 0.0-0. 7 Not Available [facility] [address] [place] [address], [id number], 06/09/2024 13:09:55 06/09/2006/09/2024 CBC w/ auto diff abs baso 0.0 K/uL 0.0-0. 2 Not Available [facility] [address] [place] [address], [id number], 06/09/2024 13:09:55 06/09/20 24 06/09/2024 CBC w/ auto diff imm. gran % 0.4 % 0-5 Not Available [facility] [address] [place] [address], [id number], 06/09/2024 13:09:55 06/09/2006/09/2024 CBC w/ auto diff NRBC % 0.0 % 0.0-0. 2 Not Available [facility] [address] [place] [address], [id number], 06/09/2024 13:09:55 06/09/2006/09/2024 CMP, serum or plasm a comp. met. panel Not Available [facility] [address] [place] [address], [id number], 06/09/2024 13:31:22 06/09/2006/09/2024 CMP, serum or plasm a sodium 138 mmol/ L 136-14 6 Not Available [facility] [address] [place] [address], [id number], 06/09/2024 13:31:22 06/09/2006/09/2024 CMP, serum or plasm a potassium 4.2 mmol/ L 3.5-5. 1 Not Available [facility] [address] [place] [address], [id number], 06/09/2024 13:31:22 06/09/2006/09/2024 CMP, serum or plasm a chloride 104 mmol/ L 98-110 Not Available [facility] [address] [place] [address], [id number], 06/09/2024 13:31:22 06/09/2006/09/2024 CMP, serum or plasm a CO2 30 mEq/L 20-32 Not Available [facility] [address] [place] [address], [id number], 06/09/2024 13:31:22 06/09/2006/09/2024 CMP, serum or plasm a anion gap 8 mmol/ L 10-22 low Not Available [facility] [address] [place] [address], [id number], 06/09/2024 13:31:22 06/09/2006/09/2024 CMP, serum or plasm a glucose 94 mg/dL 70-100 Not Available [facility] [address] [place] [address], [id number], 06/09/2024 13:31:22 06/09/20 24 06/09/2024 CMP, serum or plasm a calcium 10.2 mg/dL 8.4-10 .4 Not Available [facility] [address] [place] [address], [id number], 06/09/2024 13:31:22 06/09/20 24 06/09/2024 CMP, serum or plasm a total protein 8.2 g/dL 6.4-8. 3 Not Available [facility] [address] [place] [address], [id number], 06/09/2024 13:31:22 06/09/2006/09/2024 CMP, serum or plasm a albumin 5.3 g/dL 3.5-5. 3 Not Available [facility] [address] [place] [address], [id number], 06/09/2024 13:31:22 06/09/2006/09/2024 CMP, serum or plasm a ALP 89 U/L 44 - 127 Not Available [facility] [address] [place] [address], [id number], 06/09/2024 13:31:22 06/09/20 24 06/09/2024 CMP, serum or plasm a AST (SGOT) 32 U/L 10-40 Not Available [facility] [address] [place] [address], [id number], 06/09/2024 13:31:22 06/09/2006/09/2024 CMP, serum or plasm a total bilirubin 0.9 mg/dL 0.2-1. 0 Not Available [facility] [address] [place] [address], [id number], 06/09/2024 13:31:22 06/09/2006/09/2024 CMP, serum or plasm a ALT (SGPT) 51 U/L 8-35 high Not Available [facility] [address] [place] [address], [id number], 06/09/2024 13:31:22 06/09/2006/09/2024 CMP, serum or plasm a BUN 16 mg/dL 7-21 Not Available [facility] [address] [place] [address], [id number], 06/09/2024 13:31:22 06/09/20 24 06/09/2024 CMP, serum or plasm a creatinine 1.3 mg/dL 0.7-1. 3 Not Available [facility] [address] [place] [address], [id number], 06/09/2024 13:31:22 06/09/20 24 06/09/2024 CMP, serum or plasm a GFR(non-afri can chinese) 66 Not Available [facility] [address] [place] [address], [id number], 06/09/2024 13:31:22 06/09/20 24 06/09/2024 CMP, serum or plasm a GFR() 80 (OIL FIELD TESTER JORDAN KIDNE Y DISEA SE HAS A GFR LESS THAN 60 ML/NH N/1.7 3 MM FOR A PERIO D OF THREE MONTH S OR MORE. ) Not Available [facility] [address] [place] [address], [id number], 06/09/2024 13:31:22 06/09/20 24 06/10/2024 methi cilli n resis tant staph yloco ccus aureu s, cultu re, unspe cifie d speci men MRSA culture NEGATI VE negati ve Sourc e: Nasal -Inte rnal No methi cilli n resis tant Staph yloco ccus aureu s isola janine. Not Available [facility] [address] [place] [address], [id number], 06/10/2024 16:53:19 06/09/20 24 06/12/2024 levet katherine lino, serum levetiraceta m(keppra) 47.6 ug/mL 10.0-4 0.0 high Not Available [facility] [address] [place] [address], [id number], 06/12/2024 07:41:20 09/20/19 25 09/23/2024 levlast lino, serum levetiraceta m(keppra) 23.6 ug/mL 10.0-4 0.0 Not Available [facility] [address] [place] [address], [id number], 09/23/2024 15:38:35 01/05/20 25 12/11/2021 imagi ng/di [...] Time Methicillin resistant Staphylococ cus aureus infection 824191774 Active 2023 Jarek Dickinson MD [address] [place] [address], [phone] 3, [facility] 4 10:38:40 Serous otitis media of left ear 3105958826966 103 Active 2023 Jarek Dickinson MD [address] [place] [address], [phone] 3, [facility] 4 10:38:59 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 Medical [...] Updated DateTime 4 177.8 cm 27.3 kg/m2 29929.5 5 g 96.3 [degF] 81 /min 166 mm[Hg] 98 mm[Hg] Debora Giron [facility] 4 09:59:06 Date Recorded Body height Body mass index (BMI) Body weight Body temperature Heart rate Systolic blood pressure Diastolic blood pressure Provider Name and Address Organization Details Last Updated DateTime 4 177.8 cm 27.7 kg/m2 64372.7 6 g 97.3 [degF] 96 /min 159 mm[Hg] 87 mm[Hg] Simran Rosanne orlando [facility] 4 13:49:53 Social History Question Answer Notes [...] available 2023 22:40:08 Medical History Condition Response Diabetes N Anxiety Disorder N Bleeding Disorder N Attention-deficit Hyperactivity Disorder N High Blood Pressure N Arthritis N Hyperlipidemia N Cancer N Stroke N Thyroid Problems N Asthma N Depression N COPD N Anemia N Seizures Y Heart Disease N Fibromyalgia N Osteoporosis N Kidney Disease N Immunizations Vaccine Type Date Status Note Provider Nam e and Address Organization Details Recorded Time Hib, unspecified formulation 9 completed Debora Mack null, [facility] 06/09/2024 09:59:25 Influenza, MDCK, quadrivalent, PF 3 [facility] 09:59:26 Influenza, MDCK, quadrivalent, preservative 0 completed [facility]/09/2024 09:59:26 MMR 2 completed [facility] 06/09/2024 09:59:26 Tdap 8 completed Debora Mack null, [facility] 06/09/2024 09:59:26 Tdap 7 completed Debora Mack null, [facility] 06/09/2024 09:59:26 DTP 8 completed Debora Mack null, [facility] 06/09/2024 09:59:26 DTP 9 completed Debora Mack null, [facility] 06/09/2024 09:59:26 DTP 2 completed Debora Mack null, [facility] 06/09/2024 09:59:26 DTP 7 completed Debora Mack null, [facility] 06/09/2024 09:59:26 DTP 7 completed Debora Mack null, [facility] 06/09/2024 09:59:26 OPV 9 completed Debora Mack null, [facility] 06/09/2024 09:59:26 OPV 2 completed Debora Mack null, [facility] 06/09/2024 09:59:26 OPV 7 completed Debora Mack null, [facility] 06/09/2024 09:59:26 OPV 7 completed Debora Mack null, [facility] 06/09/2024 09:59:26 Influenza, high-dose, trivalent, PF 7 completed Debora Mack null, [facility] 06/09/2024 09:59:26 Influenza, high-dose, trivalent, PF 8 completed Debora Mack null, [facility] 06/09/2024 09:59:26 Hep B, adolescent or pediatric 8 completed Debora Mack null, [facility] 06/09/2024 09:59:26 Hep B, adolescent/high risk infant 7 completed Debora Mack null, [facility] 06/09/2024 09:59:26 Hep B, adolescent/high risk infant 7 completed Debora Mack null, [facility] 06/09/2024 09:59:26 Influenza, split virus, quadrivalent, 6 completed Debora Mack null, [facility] 06/09/2024 09:59:26 Influenza, split virus, quadrivalent, PF 5 completed Debora Mack null, [facility] 06/09/2024 09:59:26 Influenza, split virus, quadrivalent, PF 9 completed Debora Mack null, [facility] 06/09/2024 09:59:26 Influenza, MDCK, trivalent, PF 4 completed Jarek Dickinson MD [facility] [place] [address], [phone], [facility] 06/09/2024 10:24:32 Past Encounters Encounter ID Performer Location Encounter Start Date Encounter Closed Date Diagnosis/Indication Diagnosis SNOMED-CT Code Diagnosis ICD10 Code Diagnosis Note [id number] Jarek Dickinson MD [address] [facility] [place]) [address] [facility],[address] [place] [address] 06/09/2024 09:44:30 06/09/2024 12:27:31 Administration of influenza vaccine 10239171 Z23 Long-term drug therapy 219937218 Z79.891 Idiopathic generalized epilepsy 89296597 G40.309 Methicilli n resistant Staphylococcus aureus infection 202835966 A49.02 Serous patrice tis media of left ear 4296395674 710787 H65.92 Intracrani al injury with loss of consciousness 830657195 S06.899D [id number] Rome Hayden MD [address] [facility] ([place]) [address] [facility],[address] [place] [address] 07/13/2024 13:38:26 07/13/2024 15:18:28 Asymmetrical sensorineural hearing loss 667339991 H90.3 [id number] Codi Hurtado, [facility] [address] [facility],[address] [place] [address] 07/13/2024 14:26:00 07/13/2024 15:19:18 Asymmetrical sensorineural hearing loss 888294808 H90.3 Health Concerns Section Related Observation LastModified by Organization Detai ls LastModified Time None Recorded Concern Status LastModified by Organization Details LastModified Time None Recorded Advance Directives Directive Y: Payers Insurance Date Sequence Insurance Name Policy Number Policy So Covered Member ID So Member ID Guarantor Name 06/09/2024 1 [place] Tai [facility] [id number] Tai Tamara [facility] 09/20/2024 2 [facility] [id number] Tai A [facility] [id number] Tai A [facility] 11/11/2024 1 [employer] - OPEN PLAN [employer] Tai A [facility] [id number] Tai A [facility] Notes Date Note Type Note Provider Name [...] shot. 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 We will arrange an ENT appointment. 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 He feels best when he works regularly. He notes that he still does not drink enough water. Today he came alone. In 2021 he was accompanied by his mother whom I had met several years ago. She retired that year but planned to return to work because detention is boring. The patient has more energy [...] intended to return to his neurologist in [place] but now says he does not think [...] speech therapy for reading and writing at [facility] with Joyce Thompson for 1 hour each nor does he visit the [facility] in [place] for speech therapy. He is sorry that [...] [employer] in September 2017. [facility] [place] for 15-20 minutes then because of difficulty with his left eye vision. He said that he did not learn anything and no treatment was given. 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 She traveled around [place] as an field specialist but prefers a job closer to [place]. Meanwhile she is a full-time mother. Daughter Nanette attends first grade. His sister in [facility] in July 2018. Family history: Father age 69 is well. Mother, Enedina, age 68 is well and retired as a middle school science teacher. His sister born in 1984 has 3 healthy children. Brother born in 1979 is well. A cousin in 2021 at age 48 of alcoholic cirrhosis. He has 3 healthy children: Nanette Farias, born in September 2017; Adriana Chao, born [...] himself today. cc: Sahil Fierro, DO Resultspatient [id number] seen (56 on 06/11/2023) (ZONGRAN): 7.3 ug/mL Abnormal Low Reference Range 10.0-40.0LEVETIRACETA M(KEPPRA): 39.7 ug/mL Reference Range [id number] TIRACETAM(KEPPRA): 34.6 ug/mL Reference Range [id number] ETIRACETAM(KEPPRA): 48.8 mcg/mL Abnormal High Jarek Dickinson MD [address] [facility], [place], [address], [place] [facility] 06/09/2024 10:40:56
== END 2025-02-24 13:03 | disposition home or self-care (01) ==
LOC: CHSIMG 13:02
PROVIDERS: PCP Family Medicine; Visit Provider Family Medicine
DX: M54.12 Radiculopathy, cervical region (principal); M48.02 Spinal stenosis, cervical region; M25.78 Osteophyte, vertebrae
CPT/HCPCS: 72141

== ENCOUNTER 2025-04-19 14:42 | Outpatient (RCR) | payer OTHER, SELFPAY ==
--- NOTE | 2025-04-19 15:51 | OPREHPOC ---
Outpatient Therapy Plan of Care This is a Multidisciplinary Plan of Care that may contain components documented by all disciplines (PT, OT, and ST.) PT Problem 1 PT Problem #1 Knowledge Deficit PT Goal 1 Goal / Goal Update independent and compliant with HEP Target Visit 5 PT Problem 2 PT Problem #2 Impaired Range of Motion PT Goal 1 Goal / Goal Update 85 degrees bilat cervical rotation. Target Visit 10 PT Problem 3 PT Problem #3 Impaired Strength PT Goal 1 Goal / Goal Update 5/5 L elbow extension strength Target Visit 10 PT Problem 4 PT Problem #4 Impaired Functional Mobility PT Goal 1 Goal / Goal Update quick dash to display 20% or less functional deficits no L UE paresthesias
--- NOTE | 2025-04-19 15:51 | PTOPEVAL1 ---
Assessment and note entered by JT File, PT Evaluation Information Assessment Status Evaluation ICD-10 Condition Codes (PT) Cervicalgia M54.2,Radiculopathy, cervical M54.13 Onset 04/14/2025 Subjective Information patient reports he is having pain in the L side of the neck down the L thumb index and long fingers. he reports he has been tested for carpal tunnel, but reports he is unsure what the test results were. he reports he has increased symptoms with running a skid steer. he reports the L side will feel heavy and weak after prolonged use. Reported Pain Level Pain Score 0: Self Report Assessment PT Clinical Summary mr. vivas presents to skilled PT services for evaluation and treatment of L UE weakness and paresthesias. he presents this date with paresthesias along the C7 dermatome and C7 myotome indicating a C7 nerve compression on the L side. continued skilled PT is indicated to improve his objective/functional deficits and progress towards a return to his prior level functional activity performance/quality of life. Plan of Care Interventions Hot Pack/Cold Pack,Manual Therapy,Mechanical Traction,Neuro Re-education,Patient/Caregiver Education,Therapeutic Activities,Therapeutic Exercise PT Services Indicated Yes Treatment Frequency and 2x weekly for 10 visits Duration These treatments will address the objective and functional deficits as defined above. The patient will be advanced safely and appropriately in order for the patient to progress towards his/her prior level of function. Additional exercises will be introduced and as well as a comprehensive home exercise program upon discharge, if needed, ?to ensure carryover of functional gains achieved in the clinic. This treatment plan has been reviewed and agreement upon by the patient.
== END 2025-04-28 20:00 | disposition home or self-care (01) ==
LOC: CHSPT 14:42
DX: M47.22 Other spondylosis with radiculopathy, cervical region (principal)
CPT/HCPCS: 97012; 97110; 97140; 97161; 97530